=== PATIENT | female | born 1945 | race American Indian/Alaskan Native ===

== ENCOUNTER 2017-02-12 07:11 | Day surgery (SDC) | payer MEDICARE, MEDICAID ==
[2017-02-12] MEDS ORDERED: MethylPREDNISolone Depo 40 mg/ml Inj ONE (07:55)
[2017-02-12] MEDS ORDERED: Iohexol 240 (50 ml) ONE (07:55)
[2017-02-12] MEDS ORDERED: Bupivacaine HCl 0.5% PF (10 ml) Inj ONE (08:06)
[2017-02-12 08:18] LABS: HEMATOCRIT 39.7 % (34.0-47.0); MEAN CORPUSCULAR HEMOGLOBIN 33.5 pg (27.0-31.0); MEAN CORPUSCULAR HGB CONC 35.6 g/dL (33.0-37.0); MEAN PLATELET VOLUME 10.8 fL (7.2-11.7); RED CELL DISTRIBUTION WIDTH 13.9 % (11.5-14.5); WHITE BLOOD COUNT 6.7 K/uL (4.8-10.8)
[2017-02-12] MEDS ORDERED: Propofol 10 mg/ml Inj (20 ML) ONE (09:32)
[2017-02-12] MEDS ORDERED: Lactated Ringer's 1,000 ML IV ONE (09:37)
[2017-02-12] MEDS ORDERED: Lidocaine Hydrochloride 0 ML INJ ONE (09:45)
[2017-02-12 10:54] VITALS: BP 103/54; PULSE 65; RESP 18; TEMP 97.5; O2SAT 98
--- NOTE | 2017-02-12 14:30 | OP ---
PREOPERATIVE DIAGNOSES: 1. Lumbar radiculopathy. 2. Lumbar herniated disc. 3. Myalgias. POSTOPERATIVE DIAGNOSES: 1. Lumbar radiculopathy. 2. Lumbar herniated disc. 3. Myalgias. PROCEDURES: 1. Bilateral L4-L5, L5-S1 lumbar selective nerve root block. 2. Epidurogram. 3. Trigger point injections. X-RAY: [id number], Fluoroscopy of the spine. ANESTHESIA: MAC/local. SURGEON: Racquel Whitman MD COMPLICATIONS: None. BLOOD LOSS: 2 mL. INDICATION: This patient has intractable back and leg pain that is unresponsive to conservative management. The pain is adversely affecting quality of life and activities of daily living. TECHNIQUE: After comprehensive informed consent was obtained, the risks of the procedure explained and questions answered. The patient understands fully the risks are, but not limited to possible bleeding, infection, headache, nervous tissue injury and worsening of their pain. The patient was placed prone on the operating table in a comfortable position. Confirmation of the procedure to be performed was obtained from the patient. The skin overlying the area to be injected was cleaned in a strict sterile fashion using chlorhexidine. Sterile drapes were placed around the area to be injected. Using the C-arm in the anteroposterior view, the levels to be injected were identified under fluoroscope. Then, the C-arm was obliqued in the coronal plane until the facet joint was delineated approximately 25 degrees. The area to be injected was superficially anesthetized with 3 mL of 1% lidocaine using a 27-gauge, 1.25-inch needle. Under fluoroscopic guidance, a 22-gauge, 3.5-inch short bevel needle was advanced and directed toward the tip of the pars. In the lateral view, ideal placement of the needle was obtained with the tip in the cephalodorsal corner of the neural foramen. In the anteroposterior plane and under continuous fluoroscopy, 1 mL of non-ionic, water-soluble contrast (Omnipaque 180) was injected to visualize the nerve root and make sure there was no vascular uptake. After negative aspiration for blood, 1 mL of preservative-free 0.5% Marcaine in 80 mg of Depo-Medrol was slowly injected at each level. The patient experienced no painful paresthesia during the injection. Epidurogram: The patient underwent transforaminal epidural steroid injection today. The epidural was observed at the level of L4-L5 under AP and lateral fluoroscopic guidance. A 2 mL of Omnipaque 200 contrast was injected that evenly spread from level L3 to S1 level with posterior-anterior dye spread bilaterally at level of L4-L5 and L5-S1. There appeared to be a moderate degree spondylosis at level of L4-L5 and moderate degree of spondylosis at the level of L5-S1 with disc protrusion at the level of L4-L5. The intervertebral disc height at the level of L4-L5 was slightly less than normal and intervertebral disc height at the level of L5-S1 was well maintained. The neural foramen appeared to be patent. Good epidural dye containment from L3-S1 with intervertebral disc protrusion at the level of L4-L5, maintaining less than normal intervertebral disc height at level L4-L5. Spondylosis noted at the level of L4 through S1. Copies of the images are on file. Trigger Point Injections: A 27-gauge needle was used to inject trigger point areas in paralumbar muscles, parathoracic muscles, and upper gluteal muscles. Needle was redirected to sciatic nerve branches. Total volume of 10 mL of 0.25% Marcaine. Intermittent aspiration was done throughout with no heme or CSF aspirated throughout. Patient tolerated procedure well. DISPOSITION: Patient was taken to the recovery room in stable condition. Patient was given instructions to follow up in two weeks and was discharged in stable condition. No events or complications. Racquel Whitman MD
--- NOTE | 2017-02-13 15:25 | RAD ---
PROCEDURE: HISTORY: Fluoroscopy for selective nerve root block -lumbar radiculopathy COMPARISON: None TECHNIQUE: Total fluoroscopic time utilized during the procedure: 22.5 seconds. Total dose 0.52723 mGy cm squared FINDINGS: Submitted images from the current procedure: 2 Please refer to the physician's notes performing the procedure. IMPRESSION: Less than 1 hour fluoroscopic time utilized during performance of the procedure
== END 2017-02-12 10:57 | disposition home or self-care (01) ==
LOC: C.SDS 07:11
PROVIDERS: ATTEND Anesthesiology Pain Medicine
DX: M47.817 Spondylosis without myelopathy or radiculopathy, lumbosacral region (principal); M51.36 Other intervertebral disc degeneration, lumbar region; M51.16 Intervertebral disc disorders with radiculopathy, lumbar region
CPT/HCPCS: 36415; 64483; 85027; J1030; J2704; J7120; Q9966

== ENCOUNTER 2017-03-12 09:33 | Day surgery (SDC) | payer MEDICARE, MEDICAID ==
[2017-03-12] MEDS ORDERED: Bupivacaine HCl 0.25% PF (10 ml) Inj ONE (10:37)
[2017-03-12] MEDS ORDERED: Iohexol 240 (50 ml) ONE (10:38)
[2017-03-12] MEDS ORDERED: Lidocaine Hydrochloride 5 ML INJ ONE (10:38)
[2017-03-12] MEDS ORDERED: MethylPREDNISolone Depo 40 mg/ml Inj ONE (10:58)
[2017-03-12] MEDS ORDERED: Propofol 10 mg/ml Inj (20 ML) ONE (11:33)
[2017-03-12] MEDS ORDERED: Lactated Ringer's 1,000 ML IV ONE (11:40)
[2017-03-12 13:32] VITALS: BP 105/65; PULSE 70; RESP 18; TEMP 97.7; O2SAT 100
--- NOTE | 2017-03-12 15:30 | RAD ---
PROCEDURE: Fluoroscopy HISTORY: SACROILIITIS COMPARISON: None TECHNIQUE: Standard protocol for this study/examination. FINDINGS: Total fluoroscopic time (continuous mode) utilized during the procedure: 10.5 seconds. IMPRESSION: Submitted images from the current procedure: 5.0
--- NOTE | 2017-03-12 19:29 | OP ---
PROCEDURE DATE: PREOPERATIVE DIAGNOSIS: Sacroiliitis. POSTOPERATIVE DIAGNOSIS: Sacroiliitis. PROCEDURE: Right and left sacroiliac joint injection under fluoroscopic guidance. TYPE OF ANESTHESIA: Local with MAC sedation. SURGEON: Racquel Whitman MD. COMPLICATIONS: None. ESTIMATED BLOOD LOSS: 1 mL. 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 Patient came in today for sacroiliac joint intraarticular steroid injection under fluoroscopic guidance. PROCEDURE IN DETAIL: The patient, after giving informed consent for the procedure, risks and benefits were explained. The patient was brought back to the procedure room, placed in prone position. Routine monitors were applied. Patient was prepped and draped in sterile fashion. Patient's sacroiliac joint was imaged using fluoroscopy. A 27-gauge needle was used to inject lidocaine 1% subcutaneously sacroiliac joint line. Subsequently a 22-gauge needle, 3.5 inch was advanced into the sacroiliac joint. Contrast was injected showing good intraarticular spread. Subsequently 40 mg of Depo-Medrol with 3 mL of 1% lidocaine was injected with negative intermittent aspiration. No heme or CSF aspirate throughout. No paresthesias were elicited throughout. The patient tolerated the procedure well. This was repeated on the contralateral side. Vital signs remained stable. Patient reported reduction of sacroiliac joint pain post-procedure. DISPOSITION: Patient was given instructions to follow up in 2 weeks and was discharged from the postop area in stable condition. No events or complications. Racquel Whitman MD
== END 2017-03-12 13:18 | disposition home or self-care (01) ==
LOC: C.SDS 09:33
PROVIDERS: ATTEND Anesthesiology Pain Medicine
DX: M46.1 Sacroiliitis, not elsewhere classified (principal)
CPT/HCPCS: 27096; J1030; J2001; J2704; J7120; Q9966

== ENCOUNTER 2017-04-09 08:43 | Day surgery (SDC) | payer MEDICARE, MEDICAID ==
[2017-04-09] MEDS ORDERED: MethylPREDNISolone Depo 40 mg/ml Inj ONE ×2 (10:12→11:41)
[2017-04-09] MEDS ORDERED: Propofol 10 mg/ml Inj (20 ML) ONE (10:19)
[2017-04-09] MEDS ORDERED: Iohexol 240 (50 ml) ONE ×2 (11:41→11:53)
[2017-04-09] MEDS ORDERED: Bupivacaine HCl 0.25% PF (10 ml) Inj ONE (11:41)
[2017-04-09 13:08] VITALS: BP 102/54; PULSE 70; RESP 14; TEMP 97.5; O2SAT 97
--- NOTE | 2017-04-09 13:49 | RAD ---
PROCEDURE: Intraoperative Fluoroscopy. HISTORY: LUMBAR RADICULOPATHY FINDINGS: Fluoroscopic assistance was provided. 26.8 seconds fluoroscopy time utilized during this procedure. Radiation dose = 80. mGy. Please refer to the operative report for additional details
--- NOTE | 2017-04-09 22:29 | OP ---
PROCEDURE DATE: PREOPERATIVE DIAGNOSES: 1. Lumbar radiculopathy. 2. Lumbar herniated disc. 3. Myalgias. POSTOPERATIVE DIAGNOSES: 1. Lumbar radiculopathy. 2. Lumbar herniated disc. 3. Myalgias. PROCEDURE: 1. Selective nerve root block of L4-L5 bilateral. 2. Epidurogram. 3. Trigger point injections. X-RAY: [id number], Fluoroscopy of the spine. ANESTHESIA: MAC/local. SURGEON: Racquel Whitman MD COMPLICATIONS: None. BLOOD LOSS: 2 mL. INDICATION: This patient has intractable back and leg pain that is unresponsive to conservative management. The pain is adversely affecting quality of life and activities of daily living. TECHNIQUE: After comprehensive informed consent was obtained, the risks of the procedure explained and questions answered. The patient understands fully the risks are, but not limited to possible bleeding, infection, headache, nervous tissue injury and worsening of their pain. The patient was placed prone on the operating table in a comfortable position. Confirmation of the procedure to be performed was obtained from the patient. The skin overlying the area to be injected was cleaned in a strict sterile fashion using chlorhexidine. Sterile drapes were placed around the area to be injected. Using the C-arm in the anteroposterior view, the levels to be injected were identified under fluoroscope. Then, the C-arm was obliqued in the coronal plane until the facet joint was delineated approximately 25 degrees. The area to be injected was superficially anesthetized with 3 mL of 1% lidocaine using a 27-gauge, 1.25-inch needle. Under fluoroscopic guidance, a 22-gauge, 3.5-inch short bevel needle was advanced and directed toward the tip of the pars. In the lateral view, ideal placement of the needle was obtained with the tip in the cephalodorsal corner of the neural foramen. In the anteroposterior plane and under continuous fluoroscopy, 1 mL of non-ionic, water-soluble contrast (Omnipaque 180) was injected to visualize the nerve root and make sure there was no vascular uptake. After negative aspiration for blood, 1 mL of preservative-free 0.5% Marcaine in 80 mg of Depo-Medrol was slowly injected at each level. The patient experienced no painful paresthesia during the injection. Epidurogram: The patient underwent transforaminal epidural steroid injection today. The epidural was observed at the level of L4-L5 under AP and lateral fluoroscopic guidance. A 2 mL of Omnipaque 200 contrast was injected that evenly spread from level L3 to S1 level with posterior-anterior dye spread bilaterally at level of L4-L5 and L5-S1. There appeared to be a moderate degree spondylosis at level of L4-L5 and moderate degree of spondylosis at the level of L5-S1 with disc protrusion at the level of L4-L5. The intervertebral disc height at the level of L4-L5 was slightly less than normal and intervertebral disc height at the level of L5-S1 was well maintained. The neural foramen appeared to be patent. Good epidural dye containment from L3-S1 with intervertebral disc protrusion at the level of L4-L5, maintaining less than normal intervertebral disc height at level L4-L5. Spondylosis noted at the level of L4 through S1. Copies of the images are on file. Trigger Point Injections: A 27-gauge needle was used to inject trigger point areas in paralumbar muscles, parathoracic muscles, and upper gluteal muscles. Needle was redirected to sciatic nerve branches. Total volume of 10 mL of 0.25% Marcaine. Intermittent aspiration was done throughout with no heme or CSF aspirated throughout. Patient tolerated procedure well. DISPOSITION: Patient was taken to the recovery room in stable condition. Patient was given instructions to follow up in two weeks and was discharged in stable condition. No events or complications. Racquel Whitman MD
== END 2017-04-09 11:47 | disposition home or self-care (01) ==
LOC: C.SDS 08:43
PROVIDERS: ATTEND Anesthesiology Pain Medicine
DX: M51.16 Intervertebral disc disorders with radiculopathy, lumbar region (principal); M79.1 Myalgia; M47.16 Other spondylosis with myelopathy, lumbar region
CPT/HCPCS: 20552; 62323; 64520; J1030; J2704; Q9966

== ENCOUNTER 2017-05-21 06:42 | Day surgery (SDC) | payer MEDICARE, MEDICAID ==
[2017-05-21] MEDS ORDERED: Lidocaine Hydrochloride 0 ML INJ ONE (07:27)
[2017-05-21] MEDS ORDERED: MethylPREDNISolone Depo 40 mg/ml Inj ONE (07:27)
[2017-05-21] MEDS ORDERED: Iohexol 240 (50 ml) ONE (07:28)
[2017-05-21] MEDS ORDERED: Propofol 10 mg/ml Inj (20 ML) ONE (07:38)
[2017-05-21 07:39] VITALS: O2SAT 98
[2017-05-21] MEDS ORDERED: ePHEDrine 50 mg/ml Inj ONE (08:09)
[2017-05-21] MEDS ORDERED: Bupivacaine 0.25% Inj(30mL) ONE (09:08)
[2017-05-21 14:34] VITALS: BP 119/69; PULSE 67; RESP 17; TEMP 97.5
--- NOTE | 2017-05-21 19:59 | OP ---
PROCEDURE DATE: PREOPERATIVE DIAGNOSES: 1. Lumbar radiculopathy. 2. Lumbar herniated disc. 3. Myalgias. POSTOPERATIVE DIAGNOSES: 1. Lumbar radiculopathy. 2. Lumbar herniated disc. 3. Myalgias. PROCEDURE: 1. Bilateral L3-L4 lumbar selective nerve root block. 2. Epidurogram. 3. Trigger point injections. X-RAY: [id number], Fluoroscopy of the spine. ANESTHESIA: MAC/local. SURGEON: Racquel Whitman MD COMPLICATIONS: None. BLOOD LOSS: 2 mL. INDICATION: This patient has intractable back and leg pain that is unresponsive to conservative management. The pain is adversely affecting quality of life and activities of daily living. TECHNIQUE: After comprehensive informed consent was obtained, the risks of the procedure explained and questions answered. The patient understands fully the risks are, but not limited to possible bleeding, infection, headache, nervous tissue injury and worsening of their pain. The patient was placed prone on the operating table in a comfortable position. Confirmation of the procedure to be performed was obtained from the patient. The skin overlying the area to be injected was cleaned in a strict sterile fashion using chlorhexidine. Sterile drapes were placed around the area to be injected. Using the C-arm in the anteroposterior view, the levels to be injected were identified under fluoroscope. Then, the C-arm was obliqued in the coronal plane until the facet joint was delineated approximately 25 degrees. The area to be injected was superficially anesthetized with 3 mL of 1% lidocaine using a 27-gauge, 1.25-inch needle. Under fluoroscopic guidance, a 22-gauge, 3.5-inch short bevel needle was advanced and directed toward the tip of the pars. In the lateral view, ideal placement of the needle was obtained with the tip in the cephalodorsal corner of the neural foramen. In the anteroposterior plane and under continuous fluoroscopy, 1 mL of non-ionic, water-soluble contrast (Omnipaque 180) was injected to visualize the nerve root and make sure there was no vascular uptake. After negative aspiration for blood, 1 mL of preservative-free 0.5% Marcaine in 80 mg of Depo-Medrol was slowly injected at each level. The patient experienced no painful paresthesia during the injection. Epidurogram: The patient underwent transforaminal epidural steroid injection today. The epidural was observed at the level of L4-L5 under AP and lateral fluoroscopic guidance. A 2 mL of Omnipaque 200 contrast was injected that evenly spread from level L3 to S1 level with posterior-anterior dye spread bilaterally at level of L4-L5 and L5-S1. There appeared to be a moderate degree spondylosis at level of L4-L5 and moderate degree of spondylosis at the level of L5-S1 with disc protrusion at the level of L4-L5. The intervertebral disc height at the level of L4-L5 was slightly less than normal and intervertebral disc height at the level of L5-S1 was well maintained. The neural foramen appeared to be patent. Good epidural dye containment from L3-S1 with intervertebral disc protrusion at the level of L4-L5, maintaining less than normal intervertebral disc height at level L4-L5. Spondylosis noted at the level of L4 through S1. Copies of the images are on file. Trigger Point Injections: A 27-gauge needle was used to inject trigger point areas in paralumbar muscles, parathoracic muscles, and upper gluteal muscles. Needle was redirected to sciatic nerve branches. Total volume of 10 mL of 0.25% Marcaine. Intermittent aspiration was done throughout with no heme or CSF aspirated throughout. Patient tolerated procedure well. DISPOSITION: Patient was taken to the recovery room in stable condition. Patient was given instructions to follow up in two weeks and was discharged in stable condition. No events or complications. Racquel Whitman MD
--- NOTE | 2017-05-22 08:27 | RAD ---
PROCEDURE: Intraoperative Fluoroscopy. HISTORY: LUMBAR RADICULOPATHY FINDINGS: Fluoroscopic assistance was provided for L3-4 lumbar nerve block. Please refer to the operative report from LOND[facility] Herrera.
== END 2017-05-21 10:55 | disposition home or self-care (01) ==
LOC: C.SDS 06:42
PROVIDERS: ATTEND Anesthesiology Pain Medicine
DX: M51.16 Intervertebral disc disorders with radiculopathy, lumbar region (principal)
CPT/HCPCS: 20552; 62323; J1030; J2001; J2704; Q9966